=== PATIENT | male | born 1965 | race Caucasian/White ===

== ENCOUNTER 2019-04-02 14:32 | Observation (INO) ==
[2019-04-02] MEDS ORDERED: Isovue-370 500 ML BOTTLE IVP ONE (14:39)
[2019-04-02] MEDS ORDERED: Nitroglycerin 0.4 MG TAB.SUBL SL PRN ×2 (14:39→17:35)
[2019-04-02 14:55] LABS: Basophils # 0.1 K/mcL (0.0-0.2); Basophils % 0.7 %; Eosinophils # 0.2 K/mcL (0.0-0.6); Eosinophils % 1.7 %; Hematocrit 51.8 % (37.5-50.1); Hemoglobin 16.8 g/dL (12.9-16.9); Immature Granulocytes % 0.4 % (0-4); Lymphocytes # 1.9 K/mcL (0.6-4.6); Mean Corpuscular HGB Conc 32.4 g/dL (31.6-35.5); Mean Corpuscular Hemoglobin 29.5 pg (28.0-33.3); Mean Corpuscular Volume 90.9 fL (83.0-100.0); Mean Platelet Volume 10.3 fL (9.4-12.4); Monocytes # 0.7 K/mcL (0.0-1.3); Monocytes % 6.1 %; Neutrophils # 8.8 K/mcL (1.6-8.9); Platelet Count 211 K/mcL (140-400); Red Cell Distribution Width 13.4 % (11.5-14.5); Segmented Neutrophils % 75.1 %; White Blood Count 11.7 K/mcL (4.3-11.1)
[2019-04-02 15:02] LABS: Prothrombin Time 11.3 Seconds (9.4-12.1)
[2019-04-02 15:04] LABS: Activated Partial Thrombo Time 38.4 Seconds (26.0-36.0)
[2019-04-02 15:15] LABS: BUN/Creatinine Ratio 14 (6-26); Blood Urea Nitrogen 16 mg/dL (6-20); Calcium 9.5 mg/dL (8.6-10.3); Carbon Dioxide 25 mEq/L (23-29); Chloride 109 mEq/L (98-107); Glucose 108 mg/dL (70-105); Osmolality,Calculated 294 (280-300); Potassium 3.8 mEq/L (3.5-5.1); Sodium 141 mEq/L (136-145); Troponin I < 0.03 ng/mL (< 0.04); eGFR For African Americans > 60 (> 60); eGFR For Non-African Americans > 60 (> 60)
[2019-04-02] MEDS ORDERED: Naloxone 0.4 MG/ML INJ IVP PRN (16:24)
[2019-04-02] MEDS: Pantoprazole 40 MG VIAL IVP SCH (17:04)
[2019-04-02] MEDS ORDERED: hydrOXYzine pamoate 25 MG CAPSULE PO PRN (17:35)
[2019-04-02] MEDS: carvediloL 6.25 MG TABLET PO SCH (18:43)
[2019-04-02] MEDS ORDERED: QUEtiapine Fumarate 25 MG TABLET PO SCH (21:00)
[2019-04-02] MEDS: *HR* Heparin 5,000 UNIT/ML VIAL SQ SCH (22:01)
[2019-04-02] MEDS ORDERED: Acetaminophen 325 MG TABLET PO ONE (22:26)
[2019-04-02] MEDS ORDERED: *HR* Promethazine 25 MG/ML VIAL IVP PRN (22:27)
[2019-04-03 05:15] LABS: BUN/Creatinine Ratio 17 (6-26); Blood Urea Nitrogen 13 mg/dL (6-20); Calcium 9.1 mg/dL (8.6-10.3); Carbon Dioxide 24 mEq/L (23-29); Chloride 108 mEq/L (98-107); Potassium 3.6 mEq/L (3.5-5.1); Sodium 140 mEq/L (136-145); eGFR For African Americans > 60 (> 60); eGFR For Non-African Americans > 60 (> 60)
[2019-04-03 05:18] LABS: Glucose 95 mg/dL (70-105); Osmolality,Calculated 290 (280-300)
[2019-04-03] MEDS: *HR* Heparin 5,000 UNIT/ML VIAL SQ SCH (05:23)
[2019-04-03] MEDS: Pantoprazole 40 MG VIAL IVP SCH (05:24)
[2019-04-03 06:33] LABS: Hematocrit 44.4 % (37.5-50.1); Hemoglobin 14.7 g/dL (12.9-16.9); Mean Corpuscular HGB Conc 33.1 g/dL (31.6-35.5); Mean Corpuscular Hemoglobin 29.8 pg (28.0-33.3); Mean Corpuscular Volume 90.1 fL (83.0-100.0); Mean Platelet Volume 10.4 fL (9.4-12.4); Platelet Count 161 K/mcL (140-400); Red Blood Count 4.93 M/mcL (4.19-5.50); Red Cell Distribution Width 13.4 % (11.5-14.5); White Blood Count 6.7 K/mcL (4.3-11.1)
[2019-04-03] MEDS: carvediloL 6.25 MG TABLET PO SCH (08:48)
[2019-04-03] MEDS ORDERED: Aspirin Enteric Coated 81 MG Tablet PO SCH (09:00)
[2019-04-03 11:57] VITALS: BP 144/74
== END 2019-04-03 15:30 | disposition home or self-care (01) ==
LOC: 3BNU 14:32 → EMEROOARM 14:32 → 3BNU 16:13
PROVIDERS: ADMIT Internal Medicine Nephrology; ATTEND Internal Medicine Nephrology

== ENCOUNTER 2022-06-10 18:41 | Inpatient (IN) ==
[2022-06-10] MEDS ORDERED: *HR* FentaNYL (PF) 100 MCG/2 ML VIAL ONE (18:43)
[2022-06-10] MEDS ORDERED: 0.9 % Sodium Chloride 2,000 ML ONE (18:44)
[2022-06-10] MEDS ORDERED: *HR* Midazolam HCl 2 MG/2 ML VIAL ONE (18:44)
[2022-06-10] MEDS ORDERED: Nitroglycerin 1,000 MCG/5 ML VIAL IV ONE (18:44)
[2022-06-10] MEDS ORDERED: Iopamidol - 370 200 ML INFUS..BTL ONE (18:44)
[2022-06-10] MEDS ORDERED: Heparin 1,000 UNITS/500 mL 500 ML ONE (18:44)
[2022-06-10] MEDS ORDERED: *HR* Heparin 10,000 UNIT/10 ML VIAL ONE (18:44)
[2022-06-10] MEDS ORDERED: Tirofiban 12.5 MG/250ML 12.5 MG/250 ML BAG ONE (20:15)
[2022-06-10] MEDS ORDERED: Protamine Sulfate 50 MG/5 ML VIAL IVP ONE (20:38)
[2022-06-10] MEDS ORDERED: Tirofiban 12.5 MG/250ML 12.5 MG/250 ML BAG IVC SCH (20:45)
[2022-06-10] MEDS: Metoprolol XL (24 HR) Succ 25 MG TAB.ER.24H PO SCH (21:29)
[2022-06-10] MEDS: *HR* Ticagrelor 90 MG TABLET PO SCH (21:31)
[2022-06-11] MEDS: *HR* Ticagrelor 90 MG TABLET PO SCH ×2 (07:45→19:45)
[2022-06-11] MEDS: Metoprolol XL (24 HR) Succ 25 MG TAB.ER.24H PO SCH (09:20)
[2022-06-11 10:38] LABS: Basophils % 0.3 %; Eosinophils % 0.3 %; Hematocrit 51.9 % (37.5-50.1); Hemoglobin 17.5 g/dL (12.9-16.9); Immature Granulocytes % 0.5 % (0-4); Lymphocytes # 1.8 K/mcL (0.6-4.6); Lymphocytes % 13.5 %; Mean Corpuscular HGB Conc 33.7 g/dL (31.6-35.5); Mean Corpuscular Hemoglobin 29.3 pg (28.0-33.3); Mean Corpuscular Volume 86.8 fL (83.0-100.0); Mean Platelet Volume 10.1 fL (9.4-12.4); Monocytes # 0.8 K/mcL (0.0-1.3); Monocytes % 5.9 %; Neutrophils # 10.3 K/mcL (1.6-8.9); Platelet Count 186 K/mcL (140-400); Red Blood Count 5.98 M/mcL (4.19-5.50); Red Cell Distribution Width 13.7 % (11.5-14.5); Segmented Neutrophils % 79.5 %; White Blood Count 12.9 K/mcL (4.3-11.1)
[2022-06-11 10:59] LABS: BUN/Creatinine Ratio 16 (6-26); Blood Urea Nitrogen 14 mg/dL (6-20); Carbon Dioxide 23 mEq/L (23-29); Chloride 108 mEq/L (98-107); Glucose 103 mg/dL (70-105); Osmolality,Calculated 285 (280-300); Potassium 3.7 mEq/L (3.5-5.1); Sodium 137 mEq/L (136-145)
[2022-06-11] MEDS ORDERED: *HR* Heparin 5,000 UNIT/ML VIAL IVP PRN ×2 (12:20)
[2022-06-11] MEDS: Aspirin 81 MG TAB.CHEW PO SCH (12:41)
[2022-06-11] MEDS: Heparin 25,000UNIT/250ML 1/2NS 25,000 UNIT/250 ML IV.SOLN IVC SCH (12:42)
[2022-06-11] MEDS: amLODIPine 5 MG TABLET PO SCH (12:45)
[2022-06-11 13:00] LABS: Heparin anti-factor XA UFH < 0.04 IU/mL (0.30-0.70); INR 1.1; Prothrombin Time 12.2 Seconds (9.4-12.1)
[2022-06-12 03:17] LABS: Basophils # 0.1 K/mcL (0.0-0.2); Basophils % 0.6 %; Eosinophils # 0.1 K/mcL (0.0-0.6); Eosinophils % 0.8 %; Hematocrit 52.9 % (37.5-50.1); Hemoglobin 17.4 g/dL (12.9-16.9); Immature Granulocytes % 0.2 % (0-4); Lymphocytes # 2.3 K/mcL (0.6-4.6); Lymphocytes % 21.7 %; Mean Corpuscular HGB Conc 32.9 g/dL (31.6-35.5); Mean Corpuscular Hemoglobin 29.2 pg (28.0-33.3); Mean Corpuscular Volume 88.9 fL (83.0-100.0); Mean Platelet Volume 10.2 fL (9.4-12.4); Monocytes # 0.8 K/mcL (0.0-1.3); Monocytes % 7.9 %; Neutrophils # 7.2 K/mcL (1.6-8.9); Platelet Count 170 K/mcL (140-400); Red Blood Count 5.95 M/mcL (4.19-5.50); Red Cell Distribution Width 13.7 % (11.5-14.5); Segmented Neutrophils % 68.8 %; White Blood Count 10.4 K/mcL (4.3-11.1)
[2022-06-12 03:47] LABS: Alanine Aminotransferase 36 Units/L (7-52); Aspartate Amino Transferase 113 Units/L (13-39); BUN/Creatinine Ratio 17 (6-26); Blood Urea Nitrogen 16 mg/dL (6-20); Calcium 9.3 mg/dL (8.6-10.3); Carbon Dioxide 23 mEq/L (23-29); Chloride 108 mEq/L (98-107); Chol/HDL Ratio 5.3 (0-4.9); Cholesterol 168 mg/dL (< 200); Glucose 91 mg/dL (70-105); HDL Cholesterol 32 mg/dL (40-59); LDL Cholesterol,Calculated 103 mg/dL (< 100); Osmolality,Calculated 287 (280-300); Potassium 3.9 mEq/L (3.5-5.1); Sodium 138 mEq/L (136-145); Triglycerides 167 mg/dL (< 150)
[2022-06-12 04:09] LABS: Estimated Average Glucose 120 mg/dl; Hemoglobin A1C 5.8 %
[2022-06-12] MEDS: Aspirin 81 MG TAB.CHEW PO SCH (08:46)
[2022-06-12] MEDS: amLODIPine 5 MG TABLET PO SCH (08:46)
[2022-06-12] MEDS: Metoprolol XL (24 HR) Succ 25 MG TAB.ER.24H PO SCH (08:46)
[2022-06-12] MEDS: Heparin 25,000UNIT/250ML 1/2NS 25,000 UNIT/250 ML IV.SOLN IVC SCH (09:46)
[2022-06-12 16:35] LABS: Bilirubin,Urine Negative (Negative); Blood,Urine Trace (Negative); Clarity,Urine Clear (Clear); Color,Urine Yellow (Yellow); Glucose,Urine (UA) 50 mg/dL (Normal); Ketones,Urine Negative (Negative); Leukocyte Esterase,Urine Negative (Negative); Mucus,Urine Moderate per lpf (None-Few); Nitrite,Urine Negative (Negative); Protein,Urine 30 mg/dL (Neg-Trace); RBC,Urine 0-3 per hpf (0-3); Specific Gravity,Urine > 1.030 (1.010-1.025); Squamous Epithelial Cell,Urine Few per hpf (None-Few); Urobilinogen,Urine Normal (Normal); WBC,Urine 0-3 per hpf (0-3)
[2022-06-12 19:42] VITALS: O2SAT 93
[2022-06-12 20:14] VITALS: TEMP 97.6
[2022-06-12 21:06] VITALS: BP 121/98; PULSE 73
== END 2022-06-12 23:59 | disposition other institution (70) | DRG 247 ==
LOC: ICNU 20:28
PROVIDERS: ADMIT Internal Medicine Interventional Cardiology; ATTEND Internal Medicine Interventional Cardiology